=== PATIENT | male | born 1935 | race Caucasian/White ===

== ENCOUNTER 2017-11-18 01:11 | Inpatient (IN) | payer MEDICARE, BC ==
[~2017-11-18] VITALS: Ht 180.3 cm; Wt 90.6 kg
[~2017-11-18 01:11] MED LIST: CLOP75TA PO; LOSA50TA6 PO; METO-93 PO; NITR0.4T28 SL; PENI500T PO; SIMV20TA3 PO
[2017-11-18] MEDS ORDERED: LISI-167 PO (01:41)
[2017-11-18] MEDS ORDERED: ASPI-496 PO (01:41)
[2017-11-18] MEDS ORDERED: MORPHINE SULFATE 4 MG/ML, 1ML ONE (01:52)
[2017-11-18 01:57] LABS: BASOPHILS # (AUTO) 0.01 x10^3/uL (0-0.1); BASOPHILS % (AUTO) 0 % (0-1); EOSINOPHILS # (AUTO) 0.07 x10^3/uL (0-0.4); EOSINOPHILS % (AUTO) 1 % (1-7); LYMPHOCYTES % (AUTO) 37 % (22-44); MD NO; MEAN CORPUSCULAR HEMOGLOBIN 33.8 pg (27.5-34.5); MEAN CORPUSCULAR HGB CONC 33.6 g/dL (33.2-36.2); MEAN CORPUSCULAR VOLUME 100.7 fL (81-97); MEAN PLATELET VOLUME 8.5 fL (7.4-10.4); MONOCYTES # (AUTO) 0.37 x10^3/uL (0.2-0.8); MONOCYTES % (AUTO) 3 % (2-9); NEUTROPHILS # (AUTO) 7.55 x10^3/uL (1.8-6.8); NEUTROPHILS % (AUTO) 59 % (42-75); PLATELET COUNT 194 x10^3/uL (130-400); RED BLOOD COUNT 4.22 x10^6/uL (4.38-5.82); RED CELL DISTRIBUTION WIDTH 13.1 % (9.4-14.8)
[2017-11-18] MEDS ORDERED: MORPHINE SULFATE 4 MG/ML, 1ML IVPush PRN (02:00)
[2017-11-18] MEDS ORDERED: SODIUM CHLORIDE FLUSH 10ML SYR IVF ONE (02:00)
[2017-11-18 02:10] LABS: ANION GAP 11 mmol/L (5-15); CALCIUM 9.1 mg/dL (8.5-10.1); CHLORIDE 107 mmol/L (98-107); CREATININE 1.01 mg/dL (0.7-1.3)
[2017-11-18 02:11] LABS: ALANINE AMINOTRANSFERASE 19 U/L (12-78); ALBUMIN 3.4 g/dL (3.4-5.0)
[2017-11-18 02:13] LABS: ALKALINE PHOSPHATASE 109 U/L (45-117); BILIRUBIN,TOTAL 0.4 mg/dL (0.2-1.0); TOTAL PROTEIN 7.4 g/dL (6.4-8.2)
[2017-11-18] MEDS ORDERED: KETOROLAC 30 MG/1 ML ONE (03:24)
[2017-11-18] MEDS ORDERED: KETOROLAC 30 MG/1 ML IVPush ONE (03:30)
[2017-11-18] MEDS ORDERED: SODIUM CHLORIDE 0.9% 1,000ML IVBOLUS ONE (03:30)
[2017-11-18 03:49] LABS: MICROSCOPIC INDICATED
[2017-11-18 04:03] LABS: CULTURE INDICATED? NO
[2017-11-18 05:51] VITALS: BP 149/72
[2017-11-18] MEDS ORDERED: hydrALAzine 20 MG/ML, 1ML IVPush PRN (06:30)
[2017-11-18] MEDS ORDERED: morphine SULFATE 10 MG/ML, 1ML IVPush PRN (06:30)
[2017-11-18] MEDS ORDERED: BISACODYL 10 MG SUPP PR PRN (06:30)
[2017-11-18] MEDS ORDERED: POLYETHYLENE GLYCOL 17 GM PACKET PO PRN (06:30)
[2017-11-18] MEDS ORDERED: NITROGLYCERIN 0.4 MG BOTTLE (25 TABS) SL PRN (06:30)
[2017-11-18 06:58] LABS: FREE T4 (FREE THYROXINE) 1.14 ng/dL (0.76-1.46); THYROID STIMULATING HORMONE 3.46 mIU/L (0.358-3.740)
[2017-11-18 08:02] VITALS: BP 137/72
[2017-11-18] MEDS ORDERED: CLOPIDOGREL 75 MG TABLET PO SCH (09:00)
[2017-11-18] MEDS: SENNA/DOCUSATE TABLET PO SCH (09:00)
[2017-11-18] MEDS: METOPROLOL SUCCINATE 50 MG TAB.ER.24H PO SCH (09:11)
[2017-11-18] MEDS: LISINOPRIL 10 MG TABLET PO SCH (09:11)
[2017-11-18] MEDS: ASPIRIN 81 MG TABLET EC PO SCH (09:11)
[2017-11-18 10:12] LABS: CLOSTRIDIUM DIFFICILE ANTIGEN NEGATIVE; CLOSTRIDIUM DIFFICILE TOXIN NEGATIVE (Negative)
[2017-11-18] MEDS: SODIUM CHLORIDE 0.9% 1,000 ML IV SCH ×2 (10:18→18:52)
[2017-11-18 14:38] VITALS: BP 137/79
[2017-11-18] MEDS: OXYcodone IR 5MG TABLET PO PRN (14:57)
[2017-11-18 19:21] VITALS: BP 138/67
[2017-11-18] MEDS: SIMVASTATIN 20 MG TABLET PO SCH (21:24)
[2017-11-19 03:06] VITALS: BP 119/69
[2017-11-19 04:52] LABS: MEAN CORPUSCULAR HEMOGLOBIN 34.8 pg (27.5-34.5); MEAN CORPUSCULAR HGB CONC 34.2 g/dL (33.2-36.2); MEAN CORPUSCULAR VOLUME 101.6 fL (81-97); MEAN PLATELET VOLUME 8.6 fL (7.4-10.4); PLATELET COUNT 156 x10^3/uL (130-400); RED CELL DISTRIBUTION WIDTH 13.3 % (9.4-14.8)
[2017-11-19 04:56] LABS: ALBUMIN 2.7 g/dL (3.4-5.0); ANION GAP 8 mmol/L (5-15); CALCIUM 7.6 mg/dL (8.5-10.1); CHLORIDE 111 mmol/L (98-107)
[2017-11-19 05:00] LABS: ALANINE AMINOTRANSFERASE 15 U/L (12-78); ALKALINE PHOSPHATASE 86 U/L (45-117); BILIRUBIN,TOTAL 0.7 mg/dL (0.2-1.0); CHOL/HDL RATIO 3.6; CHOLESTEROL, TOTAL 98 mg/dL (140-239); CREATININE 0.92 mg/dL (0.7-1.3); HDL CHOL % 28 % (26-37); HDL CHOLESTEROL (DIRECT) 27 mg/dL (40-60); LDL CHOLESTEROL,CALCULATED 39 mg/dL (54-169); LDL/HDL RATIO 1.4 (0.5-3.0); TOTAL PROTEIN 5.8 g/dL (6.4-8.2); TRIGLYCERIDES 158 mg/dL (50-200); VLDL CHOLESTEROL 32 mg/dL (0-25)
[2017-11-19 05:15] LABS: BASOPHILS # (AUTO) 0.04 x10^3/uL (0-0.1); BASOPHILS % (AUTO) 0 % (0-1); EOSINOPHILS # (AUTO) 0.31 x10^3/uL (0-0.4); EOSINOPHILS % (AUTO) 3 % (1-7); LYMPHOCYTES # (AUTO) 5.69 x10^3/uL (1-3.4); LYMPHOCYTES % (AUTO) 50 % (22-44); MD SCAN; MONOCYTES % (AUTO) 8 % (2-9); NEUTROPHILS # (AUTO) 4.43 x10^3/uL (1.8-6.8); NEUTROPHILS % (AUTO) 39 % (42-75)
[2017-11-19 07:59] VITALS: BP 130/71
[2017-11-19] MEDS: ASPIRIN 81 MG TABLET EC PO SCH (08:19)
[2017-11-19] MEDS: METOPROLOL SUCCINATE 50 MG TAB.ER.24H PO SCH (08:19)
[2017-11-19] MEDS: LISINOPRIL 10 MG TABLET PO SCH (08:19)
[2017-11-19] MEDS: SENNA/DOCUSATE TABLET PO SCH (08:20)
[2017-11-19] MEDS: OXYcodone IR 5MG TABLET PO PRN ×3 (10:42→20:40)
[2017-11-19 14:48] VITALS: BP 114/64
[2017-11-19 19:31] VITALS: BP 132/62
[2017-11-19] MEDS: SIMVASTATIN 20 MG TABLET PO SCH (19:50)
[2017-11-20 01:08] VITALS: BP 129/71
[2017-11-20] MEDS: OXYcodone IR 5MG TABLET PO PRN ×5 (01:52→16:16)
[2017-11-20 05:30] LABS: BASOPHILS # (AUTO) 0.02 x10^3/uL (0-0.1); BASOPHILS % (AUTO) 0 % (0-1); EOSINOPHILS # (AUTO) 0.32 x10^3/uL (0-0.4); EOSINOPHILS % (AUTO) 3 % (1-7); LYMPHOCYTES # (AUTO) 4.87 x10^3/uL (1-3.4); LYMPHOCYTES % (AUTO) 44 % (22-44); MD NO; MEAN CORPUSCULAR HEMOGLOBIN 33.4 pg (27.5-34.5); MEAN CORPUSCULAR HGB CONC 33.3 g/dL (33.2-36.2); MEAN CORPUSCULAR VOLUME 100.2 fL (81-97); MEAN PLATELET VOLUME 8.3 fL (7.4-10.4); MONOCYTES # (AUTO) 1.07 x10^3/uL (0.2-0.8); MONOCYTES % (AUTO) 10 % (2-9); NEUTROPHILS # (AUTO) 4.74 x10^3/uL (1.8-6.8); NEUTROPHILS % (AUTO) 43 % (42-75); PLATELET COUNT 155 x10^3/uL (130-400); RED BLOOD COUNT 3.66 x10^6/uL (4.38-5.82); RED CELL DISTRIBUTION WIDTH 13.1 % (9.4-14.8)
[2017-11-20 05:44] LABS: ANION GAP 6 mmol/L (5-15); CALCIUM 7.7 mg/dL (8.5-10.1); CHLORIDE 107 mmol/L (98-107)
[2017-11-20 05:45] LABS: CREATININE 0.81 mg/dL (0.7-1.3)
[2017-11-20 08:00] VITALS: BP 111/64
[2017-11-20] MEDS: ASPIRIN 81 MG TABLET EC PO SCH (08:01)
[2017-11-20] MEDS: METOPROLOL SUCCINATE 50 MG TAB.ER.24H PO SCH (08:01)
[2017-11-20] MEDS: LISINOPRIL 10 MG TABLET PO SCH (08:01)
[2017-11-20] MEDS: SENNA/DOCUSATE TABLET PO SCH (08:11)
[2017-11-20] MEDS ORDERED: MAGNESIUM SULFATE PMX 2GM/50ML 50 ML IV ONE (09:30)
[2017-11-20 12:44] VITALS: BP 118/65
[2017-11-20] MEDS ORDERED: MAGN64TA7 PO (13:41)
[2017-11-20] MEDS ORDERED: SENN1TAB7 PO (13:41)
[2017-11-20] MEDS ORDERED: OXYC5TAB3 PO (13:41)
[2017-11-20] MEDS ORDERED: MAGNESIUM CHLORIDE 64 MG TABLET.DR PO SCH (21:00)
== END 2017-11-20 16:30 | disposition home or self-care (01) | DRG 693 ==
LOC: ED 01:38 → 4NOR 04:16 → 3NW 16:36
PROVIDERS: ADMIT Internal Medicine; ATTEND Internal Medicine
DX: N13.2 Hydronephrosis with renal and ureteral calculous obstruction (principal); J96.01 Acute respiratory failure with hypoxia; C79.51 Secondary malignant neoplasm of bone; C61 Malignant neoplasm of prostate; E11.65 Type 2 diabetes mellitus with hyperglycemia; J44.9 Chronic obstructive pulmonary disease, unspecified; R31.29 Other microscopic hematuria; I10 Essential (primary) hypertension; E78.5 Hyperlipidemia, unspecified; N40.0 Benign prostatic hyperplasia without lower urinary tract symptoms; I25.10 Atherosclerotic heart disease of native coronary artery without angina pectoris; Z95.5 Presence of coronary angioplasty implant and graft; I25.2 Old myocardial infarction; Z86.73 Personal history of transient ischemic attack (TIA), and cerebral infarction without residual deficits; Z89.112 Acquired absence of left hand; Z79.82 Long term (current) use of aspirin; Z79.899 Other long term (current) drug therapy
CPT/HCPCS: 36415; 74176; 80048; 80053; 80061; 81001; 83036; 83735; 84439; 84443; 85025; 87324; 96361; 96374; 96375; J1885; J3475; J7030

== ENCOUNTER 2017-12-03 09:06 | Day surgery (SDC) | payer MEDICARE, BC ==
[~2017-12-03] VITALS: Ht 180.3 cm; Wt 83.4 kg
[~2017-12-03 09:06] MED LIST changes: +ASPI-496 PO; +LISI-167 PO; +MAGN64TA7 PO; +OXYC5TAB3 PO; +SENN1TAB7 PO
[2017-12-03 10:17] VITALS: BP 151/79
[2017-12-03] MEDS ORDERED: SODIUM CHLORIDE 0.9% 1,000 ML IV SCH (10:19)
[2017-12-03] MEDS ORDERED: ALBU8.5H8 INH (10:28)
[2017-12-03] MEDS ORDERED: OXYC5CAP2 PO (10:28)
[2017-12-03] MEDS ORDERED: LISI-167 PO (10:28)
[2017-12-03] MEDS ORDERED: METO50TA82 PO (10:28)
[2017-12-03] MEDS ORDERED: MIDAZOLAM 1 MG/ML, 5ML ONE (11:04)
[2017-12-03] MEDS ORDERED: FENTANYL PF 100 MCG/2ML ONE (11:04)
[2017-12-03] MEDS ORDERED: NALOXONE 1 MG/ML, 2ML ONE (11:05)
[2017-12-03] MEDS ORDERED: FLUMAZENIL 0.1 MG/1 ML, 5ML ONE (11:05)
== END 2017-12-03 13:10 | disposition home or self-care (01) ==
LOC: OUT 09:06
PROVIDERS: ATTEND Urology
DX: C61 Malignant neoplasm of prostate (principal); C79.51 Secondary malignant neoplasm of bone; Z79.82 Long term (current) use of aspirin; J44.9 Chronic obstructive pulmonary disease, unspecified; E11.9 Type 2 diabetes mellitus without complications; Z86.73 Personal history of transient ischemic attack (TIA), and cerebral infarction without residual deficits; Z98.890 Other specified postprocedural states; Z95.1 Presence of aortocoronary bypass graft
CPT/HCPCS: 20220; 77012; 88307; 88311; 99156; 99157; J2250; J3010; J7030; 88341; 88342; G0461; J2310

== ENCOUNTER → 2018-04-07 | Outpatient (CLI) | payer MEDICARE, BC ==
[~2018-04-07] MED LIST changes: +ALBU8.5H8 INH; -LOSA50TA6 PO; +LOSA50TA7 PO; +METO50TA82 PO; +OXYC5CAP2 PO; -SENN1TAB7 PO; +SENN1TAB8 PO
== END | disposition home or self-care (01) ==
LOC: CVU 09:48
PROVIDERS: ATTEND Internal Medicine Cardiovascular Disease
DX: I65.23 Occlusion and stenosis of bilateral carotid arteries (principal); I63.9 Cerebral infarction, unspecified; I25.10 Atherosclerotic heart disease of native coronary artery without angina pectoris; I10 Essential (primary) hypertension; E11.9 Type 2 diabetes mellitus without complications; E78.5 Hyperlipidemia, unspecified; Z86.73 Personal history of transient ischemic attack (TIA), and cerebral infarction without residual deficits
CPT/HCPCS: 93880

== ENCOUNTER → 2018-05-20 | Outpatient (CLI) | payer MEDICARE, BC | END | disposition home or self-care (01) | LOC: WOUND 12:44 | PROVIDERS: ATTEND Internal Medicine | DX: L03.317 Cellulitis of buttock (principal); E11.9 Type 2 diabetes mellitus without complications; I10 Essential (primary) hypertension; E78.5 Hyperlipidemia, unspecified; J44.9 Chronic obstructive pulmonary disease, unspecified; I25.2 Old myocardial infarction; I25.10 Atherosclerotic heart disease of native coronary artery without angina pectoris; Z85.46 Personal history of malignant neoplasm of prostate; Z86.73 Personal history of transient ischemic attack (TIA), and cerebral infarction without residual deficits | CPT/HCPCS: 97597; G0463 ==

== ENCOUNTER → 2018-05-27 | Outpatient (CLI) | payer MEDICARE, BC | END | disposition home or self-care (01) | LOC: WOUND 13:10 | PROVIDERS: ATTEND Internal Medicine | DX: L03.317 Cellulitis of buttock (principal); E11.9 Type 2 diabetes mellitus without complications; I10 Essential (primary) hypertension; J44.9 Chronic obstructive pulmonary disease, unspecified; E78.5 Hyperlipidemia, unspecified; I25.2 Old myocardial infarction; I25.10 Atherosclerotic heart disease of native coronary artery without angina pectoris; Z85.46 Personal history of malignant neoplasm of prostate; Z86.73 Personal history of transient ischemic attack (TIA), and cerebral infarction without residual deficits | CPT/HCPCS: G0463 ==

== ENCOUNTER → 2018-11-23 | Outpatient (CLI) | payer MEDICARE, BC ==
[~2018-11-23] MED LIST changes: +LOSA50TA14 PO; -LOSA50TA7 PO; +SENN-177 PO; -SENN1TAB8 PO
== END | disposition home or self-care (01) ==
LOC: CVU 10:01
PROVIDERS: ATTEND Internal Medicine Cardiovascular Disease
DX: I08.8 Other rheumatic multiple valve diseases (principal); I25.10 Atherosclerotic heart disease of native coronary artery without angina pectoris; R06.02 Shortness of breath
CPT/HCPCS: 93306

== ENCOUNTER 2018-12-03 09:21 | Inpatient (IN) | payer MEDICARE, BC ==
[~2018-12-03] VITALS: Ht 177.8 cm; Wt 83.1 kg
[2018-12-03] MEDS ORDERED: SODIUM CHLORIDE FLUSH 10ML SYR IVF ONE (09:30)
--- NOTE | 2018-12-03 09:47 | NUR ---
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 SKIN WARM, PINK, DRY, NAD NOTED. LAB AT BEDSIDE. CARDIAC/SP02 MONITOR ON PATIENT. CALL LIGHT WITHIN REACH. SPOUSE AT BEDSIDE.
[2018-12-03] MEDS ORDERED: LEUP3.75 INJ (09:56)
[2018-12-03] MEDS ORDERED: DENO120V INJ (09:58)
[2018-12-03] MEDS ORDERED: ABIR250T PO (09:59)
[2018-12-03] MEDS ORDERED: METF500T17 PO (10:01)
--- NOTE | 2018-12-03 10:04 | NUR ---
LABS/BLOOD CULTURES DRAWN X 2 DRAWN, PATIENT DENIES CP, AWAITING CT AT THIS TIME. NAD NOTED.
[2018-12-03 10:21] LABS: ALBUMIN 3.6 g/dL (3.4-5.0); ANION GAP 12 mmol/L (5-15); CALCIUM 9.4 mg/dL (8.5-10.1); CHLORIDE 105 mmol/L (98-107); CREATININE 0.73 mg/dL (0.7-1.3); MEAN CORPUSCULAR HEMOGLOBIN 36.5 pg (27.5-34.5); MEAN CORPUSCULAR HGB CONC 33.6 g/dL (33.2-36.2); MEAN CORPUSCULAR VOLUME 108.4 fL (81-97); MEAN PLATELET VOLUME 8.4 fL (7.4-10.4); PLATELET COUNT 225 x10^3/uL (130-400); RED BLOOD COUNT 3.89 x10^6/uL (4.38-5.82); RED CELL DISTRIBUTION WIDTH 13.3 % (9.4-14.8)
[2018-12-03 10:25] LABS: TROPONIN I < 0.015 ng/mL (0.000-0.045)
--- NOTE | 2018-12-03 10:33 | NUR ---
PATIENT TO CT VIA [id number].
[2018-12-03] MEDS ORDERED: OMNIPAQUE 350 MG/ML, 100ML BOTTLE ONE (10:48)
[2018-12-03 10:52] LABS: MD YES
--- NOTE | 2018-12-03 11:00 | NUR ---
PATIENT SPEAKING TO MD AT BESIDE. PATIENT TO BE ADMIT. NAD NOTED, AWAITING ADMIT ORDER.
[2018-12-03 11:09] LABS: EOS#(MANUAL) 0.38 x10^3/uL (0.0-0.4); EOS% (MANUAL) 2 % (1-7); LYMPH#(MANUAL) 15.31 x10^3/uL (1-3.4); LYMPHS% (MANUAL) 81 % (22-44); MONOS#(MANUAL) 0.76 x10^3/uL (0.3-2.7); MONOS% (MANUAL) 4 % (2-9); SEG#(MANUAL) 2.46 x10^3/uL (1.8-6.8); SEGS% (MANUAL) 13 % (42-75)
[2018-12-03 11:16] LABS: SMUDGE CELLS 1+
[2018-12-03 11:20] LABS: <PLATELET ESTIMATE> ADEQUATE; LARGE PLATELETS 1+
[2018-12-03 11:26] LABS: HEMOGRAM NOTE RECHECKED
--- NOTE | 2018-12-03 11:46 | NUR ---
REPORT TO ANGELA ELI.
[2018-12-03 12:31] VITALS: BP 155/76
[2018-12-03] MEDS ORDERED: morphine SULFATE 10 MG/ML, 1ML IVPush PRN (15:30)
[2018-12-03] MEDS ORDERED: ONDANSETRON ODT 4 MG PO PRN (15:30)
[2018-12-03] MEDS ORDERED: BISACODYL 10 MG SUPP PR PRN (15:30)
[2018-12-03] MEDS ORDERED: PROMETHAZINE 25 MG/ML, 1ML IM PRN (15:30)
[2018-12-03] MEDS ORDERED: ONDANSETRON 2MG/ML, 2ML IVPush PRN (15:30)
[2018-12-03] MEDS ORDERED: hydrALAzine 20 MG/ML, 1ML IVPush PRN (15:30)
[2018-12-03] MEDS ORDERED: ACETAMINOPHEN 325 MG TABLET PO PRN (15:30)
[2018-12-03] MEDS ORDERED: POLYETHYLENE GLYCOL 17 GM PACKET PO PRN (15:30)
[2018-12-03] MEDS ORDERED: OXYcodone IR 5MG TABLET PO PRN (15:30)
[2018-12-03] MEDS ORDERED: DOCUSATE 100 MG CAPSULE PO PRN (15:30)
[2018-12-03] MEDS: ENOXAPARIN 40 MG/0.4 ML SQ SCH (16:10)
[2018-12-03 16:15] LABS: HEMOGLOBIN A1C 6.6 % (4.2-6.3)
[2018-12-03 16:22] LABS: FREE T4 (FREE THYROXINE) 1.27 ng/dL (0.76-1.46); THYROID STIMULATING HORMONE 2.87 mIU/L (0.358-3.740)
[2018-12-03 18:33] LABS: MICROSCOPIC NOT IND
[2018-12-03 18:47] LABS: CULTURE INDICATED? NO
[2018-12-03 20:08] VITALS: BP 123/75
[2018-12-04 01:51] VITALS: BP 100/55
[2018-12-04 05:03] LABS: MEAN CORPUSCULAR HEMOGLOBIN 35.9 pg (27.5-34.5); MEAN CORPUSCULAR HGB CONC 32.7 g/dL (33.2-36.2); MEAN CORPUSCULAR VOLUME 109.6 fL (81-97); MEAN PLATELET VOLUME 8.4 fL (7.4-10.4); PLATELET COUNT 201 x10^3/uL (130-400); RED BLOOD COUNT 3.54 x10^6/uL (4.38-5.82)
[2018-12-04 05:26] LABS: CHLORIDE 104 mmol/L (98-107)
[2018-12-04 05:31] LABS: ALANINE AMINOTRANSFERASE 19 U/L (12-78); ALKALINE PHOSPHATASE 66 U/L (45-117); ANION GAP 6 mmol/L (5-15); BILIRUBIN,TOTAL 0.4 mg/dL (0.2-1.0); CALCIUM 8.3 mg/dL (8.5-10.1); CHOL/HDL RATIO 5.7; CHOLESTEROL, TOTAL 195 mg/dL (140-239); CREATININE 0.73 mg/dL (0.7-1.3); HDL CHOL % 17 % (26-37); HDL CHOLESTEROL (DIRECT) 34 mg/dL (40-60); LDL CHOLESTEROL,CALCULATED 92 mg/dL (54-169); LDL/HDL RATIO 2.7 (0.5-3.0); TRIGLYCERIDES 347 mg/dL (50-200); VLDL CHOLESTEROL 69 mg/dL (0-25)
[2018-12-04 05:58] LABS: MD YES
[2018-12-04 06:00] LABS: <PLATELET ESTIMATE> ADEQUATE; EOS#(MANUAL) 0.51 x10^3/uL (0.0-0.4); EOS% (MANUAL) 3 % (1-7); LYMPH#(MANUAL) 10.71 x10^3/uL (1-3.4); LYMPHS% (MANUAL) 63 % (22-44); MONOS#(MANUAL) 0.51 x10^3/uL (0.3-2.7); MONOS% (MANUAL) 3 % (2-9); REACTIVE LYMPHS # (MANUAL) 0.34 x10^3/uL (0-0); REACTIVE LYMPHS % (MANUAL) 2 % (0-0); SEG#(MANUAL) 4.93 x10^3/uL (1.8-6.8); SEGS% (MANUAL) 29 % (42-75); SMUDGE CELLS 1+
[2018-12-04 06:01] LABS: LARGE PLATELETS 1+
[2018-12-04] MEDS ORDERED: MAGNESIUM SULFATE PMX 4GM/100M 100 ML IV ONE (07:30)
[2018-12-04 07:50] VITALS: BP 131/70
[2018-12-04] MEDS ORDERED: ACETAMINOPHEN 325 MG TABLET PO PRN (08:00)
[2018-12-04] MEDS: SODIUM CHLORIDE 0.9% 1,000 ML IV SCH (08:48)
[2018-12-04] MEDS: INSULIN LISPRO 100 UNITS/ML, PEN SQ-INSULIN SCH ×3 (11:00→20:01)
[2018-12-04 13:15] VITALS: BP 99/62
[2018-12-04] MEDS ORDERED: SIMV20TA3 PO (14:27)
[2018-12-04] MEDS ORDERED: PRED5TAB PO (14:28)
[2018-12-04] MEDS ORDERED: OXYC-302 PO (14:29)
[2018-12-04] MEDS ORDERED: UMEC62.5 INH (14:41)
[2018-12-04] MEDS ORDERED: ESOM20CA57 PO (14:48)
[2018-12-04] MEDS: ENOXAPARIN 40 MG/0.4 ML SQ SCH (17:50)
[2018-12-04 19:04] VITALS: BP 127/66
[2018-12-04] MEDS ORDERED: METOPROLOL TARTRATE 50 MG TABLET PO SCH (21:00)
[2018-12-04] MEDS: metFORMIN XR 500 MG TAB.ER.24H PO SCH (21:08)
[2018-12-05 01:05] VITALS: BP 125/73
[2018-12-05] MEDS: SODIUM CHLORIDE 0.9% 1,000 ML IV SCH (03:04)
[2018-12-05] MEDS ORDERED: ASPIRIN 81 MG TABLET EC PO SCH (06:00)
[2018-12-05] MEDS: INSULIN LISPRO 100 UNITS/ML, PEN SQ-INSULIN SCH (07:00)
[2018-12-05 07:17] VITALS: BP 132/75
[2018-12-05 07:51] LABS: MEAN CORPUSCULAR HEMOGLOBIN 34.2 pg (27.5-34.5); MEAN CORPUSCULAR HGB CONC 31.1 g/dL (33.2-36.2); MEAN CORPUSCULAR VOLUME 109.7 fL (81-97); MEAN PLATELET VOLUME 8.5 fL (7.4-10.4); PLATELET COUNT 190 x10^3/uL (130-400); RED BLOOD COUNT 3.47 x10^6/uL (4.38-5.82); RED CELL DISTRIBUTION WIDTH 13.5 % (9.4-14.8)
[2018-12-05] MEDS: metFORMIN XR 500 MG TAB.ER.24H PO SCH (08:00)
[2018-12-05 08:59] LABS: MD YES
[2018-12-05 09:33] LABS: EOS#(MANUAL) 0.14 x10^3/uL (0.0-0.4); EOS% (MANUAL) 1 % (1-7); METAMYELOCYTES# (MANUAL) 0.14 x10^3/uL (0-0); METAMYELOCYTES% (MANUAL) 1 % (0-1)
[2018-12-05 09:36] LABS: <PLATELET ESTIMATE> ADEQUATE; ANISOCYTOSIS 1+; LYMPH#(MANUAL) 10.01 x10^3/uL (1-3.4); LYMPHS% (MANUAL) 71 % (22-44); MONOS#(MANUAL) 0.28 x10^3/uL (0.3-2.7); MONOS% (MANUAL) 2 % (2-9); SEG#(MANUAL) 3.53 x10^3/uL (1.8-6.8); SEGS% (MANUAL) 25 % (42-75); SMUDGE CELLS 1+
[2018-12-05 09:37] LABS: LARGE PLATELETS 1+
== END 2018-12-05 11:38 | disposition home or self-care (01) | DRG 189 ==
LOC: ED 11:14 → EDIP 11:25 → 3NW 12:14 → DCLOUNGE 12-05 11:27
PROVIDERS: ADMIT Internal Medicine; ATTEND Internal Medicine
DX: J96.21 Acute and chronic respiratory failure with hypoxia (principal); C91.10 Chronic lymphocytic leukemia of B-cell type not having achieved remission; C79.51 Secondary malignant neoplasm of bone; E87.2 Acidosis; J84.10 Pulmonary fibrosis, unspecified; E11.9 Type 2 diabetes mellitus without complications; E78.5 Hyperlipidemia, unspecified; E83.42 Hypomagnesemia; I10 Essential (primary) hypertension; I25.10 Atherosclerotic heart disease of native coronary artery without angina pectoris; J44.9 Chronic obstructive pulmonary disease, unspecified; M19.90 Unspecified osteoarthritis, unspecified site; I25.2 Old myocardial infarction; Z85.46 Personal history of malignant neoplasm of prostate; Z86.73 Personal history of transient ischemic attack (TIA), and cerebral infarction without residual deficits; Z87.442 Personal history of urinary calculi; Z92.21 Personal history of antineoplastic chemotherapy; Z95.5 Presence of coronary angioplasty implant and graft; Z99.81 Dependence on supplemental oxygen; Z79.82 Long term (current) use of aspirin; Z79.899 Other long term (current) drug therapy; L89.312 Pressure ulcer of right buttock, stage 2
CPT/HCPCS: 36415; 36600; 71275; 80048; 80053; 80061; 81003; 82040; 82803; 82962; 83036; 83605; 83735; 83880; 84100; 84439; 84443; 84484; 85025; 87040; 93005; 96374; 99285; G0378; J1650; Q9967; J1815; J3475; J7030; J7512

== ENCOUNTER 2019-05-03 12:43 | Inpatient (IN) | payer MEDICARE, BC ==
[~2019-05-03] VITALS: Ht 177.8 cm; Wt 83.7 kg
[~2019-05-03 12:43] MED LIST changes: +ABIR250T PO; +DENO120V INJ; +ESOM20CA57 PO; +LEUP3.75 INJ; +METF500T17 PO; +OXYC-302 PO; +PRED5TAB PO; +UMEC62.5 INH
[2019-05-03] MEDS ORDERED: NITR0.4T41 SL (13:00)
[2019-05-03] MEDS ORDERED: ABIR250T PO (13:02)
[2019-05-03] MEDS ORDERED: MULT-707 PO (13:02)
[2019-05-03] MEDS ORDERED: CALC200T3 PO (13:03)
--- NOTE | 2019-05-03 13:07 | NUR ---
PATIENT BIB [facility] FOR SOB AND CHEST PAIN FOR MONTHS, WORSENING PAIN IN LEFT ARM WHEN "OXYGEN LEVEL DROPS", 58% 5L O2 PER FAMILY, NOW 96% 4L OXYMASK, HR 110'S-140'S UPON ARRIVAL TO [facility]. HX PR WITH CARDIAC STENTS X 3. HX PROSTATE CA, CLL (DORMANT), CVA (2010), PULMONARY FIBROSIS, COPD. DENIES PAIN AT THIS TIME. 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
--- NOTE | 2019-05-03 13:09 | NUR ---
PATIENT 88%4L OXYMASK, NOW 92% 6L OXYMASK, NADN. DENIES CP AT THIS TIME.
--- NOTE | 2019-05-03 13:23 | NUR ---
PATIENT O2 TURNED DOWN TO 5L, NOW 93% 5L OXYMASK, LAB AT BEDSIDE,
[2019-05-03] MEDS ORDERED: SODIUM CHLORIDE 0.9% 1,000ML IVBOLUS ONE (13:30)
[2019-05-03] MEDS ORDERED: SODIUM CHLORIDE FLUSH 10ML SYR IVF ONE (13:30)
--- NOTE | 2019-05-03 13:43 | NUR ---
XRAY AT BEDSIDE.
[2019-05-03 13:46] LABS: MEAN CORPUSCULAR HGB CONC 32.8 g/dL (33.2-36.2); MEAN CORPUSCULAR VOLUME 106.9 fL (81-97); MEAN PLATELET VOLUME 8.4 fL (7.4-10.4); PLATELET COUNT 194 x10^3/uL (130-400); RED BLOOD COUNT 4.03 x10^6/uL (4.38-5.82)
[2019-05-03 13:55] LABS: INTERNATIONAL NORMALIZED RATIO 0.97 (0.93-1.1); PROTHROMBIN TIME 10.2 Seconds (9.6-11.5)
[2019-05-03 13:56] LABS: ALBUMIN 3.3 g/dL (3.4-5.0); ANION GAP 9 mmol/L (5-15); CALCIUM 8.2 mg/dL (8.5-10.1); CHLORIDE 108 mmol/L (98-107)
[2019-05-03 14:02] LABS: ALANINE AMINOTRANSFERASE 14 U/L (12-78); ALKALINE PHOSPHATASE 76 U/L (45-117); BILIRUBIN,TOTAL 0.8 mg/dL (0.2-1.0); CREATININE 0.76 mg/dL (0.7-1.3); TOTAL PROTEIN 6.8 g/dL (6.4-8.2); TROPONIN I 0.107 ng/mL (0.000-0.045)
--- NOTE | 2019-05-03 14:06 | NUR ---
SPOKE TO ERP, STOP IVF PER ORDER. IVF STOPPED AT THIS TIME. HR 90'S-140'S, ERP AWARE, CARDIZEM TO BE ORDERED. PATIENT 81% 5L OXYMASK, SUPPLEMENTAL O2 INCREASED, NOW 99% 6L OXYMASK, NADN. PATIENT TO BE ADMIT PER ERP.
[2019-05-03 14:21] LABS: MD YES
[2019-05-03 14:24] LABS: BAND#(MANUAL) 0.17 x10^3/uL; BANDS%(MANUAL) 1 % (0-7); LYMPH#(MANUAL) 9.97 x10^3/uL (1-3.4); LYMPHS% (MANUAL) 59 % (22-44); MONOS#(MANUAL) 1.18 x10^3/uL (0.3-2.7); MONOS% (MANUAL) 7 % (2-9); SEG#(MANUAL) 5.58 x10^3/uL (1.8-6.8); SEGS% (MANUAL) 33 % (42-75)
[2019-05-03 14:25] LABS: <PLATELET ESTIMATE> ADEQUATE; ANISOCYTOSIS 1+; SMUDGE CELLS 1+
[2019-05-03 14:26] LABS: <PLT MORPHOLOGY> NORMAL PLT MORPH
--- NOTE | 2019-05-03 14:30 | NUR ---
TO SEE PATIENT PRIOR TO ORDERING CARDIZEM.
[2019-05-03] MEDS ORDERED: UMEC62.5 INH (14:37)
[2019-05-03] MEDS ORDERED: ALBU0.63 NEB (14:37)
--- NOTE | 2019-05-03 15:00 | NUR ---
VS UPDATED IN CHART, AWAITING ADMIT ORDER. PATIENT SITTING IN GERRY GE.
--- NOTE | 2019-05-03 16:26 | NUR ---
REPORT TO ANGELA WHITE.
--- NOTE | 2019-05-03 16:26 | NUR ---
PATIENT IN RADIOLOGY.
[2019-05-03] MEDS ORDERED: DEXTROSE 50%, 50ML SYRINGE IVPush PRN (16:30)
[2019-05-03] MEDS ORDERED: ACETAMINOPHEN 325 MG TABLET PO PRN (16:30)
[2019-05-03] MEDS ORDERED: NITROGLYCERIN 0.4 MG BOTTLE (25 TABS) SL PRN (16:30)
[2019-05-03] MEDS ORDERED: ONDANSETRON ODT 4 MG PO PRN (16:30)
[2019-05-03] MEDS ORDERED: NITROGLYCERIN 0.4 MG/SPRAY SL PRN (16:30)
[2019-05-03] MEDS ORDERED: DEXTROSE 4 GM TAB.CHEW PO PRN (16:30)
[2019-05-03] MEDS ORDERED: hydrALAzine 20 MG/ML, 1ML IVPush PRN (16:30)
[2019-05-03] MEDS ORDERED: ONDANSETRON 2MG/ML, 2ML IVPush PRN (16:30)
[2019-05-03] MEDS ORDERED: GLUCAGON 1 MG IM PRN (16:30)
[2019-05-03] MEDS ORDERED: OXYcodone IR 5MG TABLET PO PRN (16:30)
[2019-05-03] MEDS ORDERED: morphine SULFATE 10 MG/ML, 1ML IVPush PRN (16:30)
[2019-05-03] MEDS ORDERED: PROMETHAZINE 25 MG/ML, 1ML IM PRN (16:30)
[2019-05-03] MEDS ORDERED: OMNIPAQUE 350 MG/ML, 100ML BOTTLE ONE (16:38)
--- NOTE | 2019-05-03 16:50 | NUR ---
PATIENT TRANSFERRED/ADMITTED TO HOSPITAL BED UPSTAIRS.
[2019-05-03 16:59] VITALS: BP 135/85
[2019-05-03] MEDS: FUROSEMIDE 40 MG/4 ML IV SCH (17:06)
[2019-05-03] MEDS: methylPREDNISolone SOD SUCC 40 MG/ML IV SCH (17:11)
[2019-05-03] MEDS: ENOXAPARIN 40 MG/0.4 ML SQ SCH (17:16)
[2019-05-03] MEDS ORDERED: METOPROLOL TARTRATE 50 MG TABLET ONE (17:30)
[2019-05-03] MEDS ORDERED: FENO130C6 PO (17:46)
[2019-05-03] MEDS ORDERED: ALBUTEROL SULFATE 2.5 MG/3 ML NPPB PRN (20:00)
[2019-05-03 20:04] VITALS: BP 118/84
[2019-05-03] MEDS: ALBUTEROL/IPRATROPIUM 2.5MG/0.5MG, 3 ML NPPB SCH (20:17)
[2019-05-03] MEDS ORDERED: METOPROLOL TARTRATE 50 MG TABLET PO SCH (21:00)
[2019-05-03] MEDS: SODIUM CHLORIDE FLUSH 10ML SYR IVF SCH (21:23)
[2019-05-03] MEDS: SIMVASTATIN 20 MG TABLET PO SCH (21:25)
[2019-05-03] MEDS: LOSARTAN 50MG TABLET PO SCH (21:25)
[2019-05-03] MEDS: INSULIN LISPRO 100 UNITS/ML, PEN SQ-INSULIN SCH (22:36)
[2019-05-04] MEDS: methylPREDNISolone SOD SUCC 40 MG/ML IV SCH ×3 (01:25→17:27)
[2019-05-04] MEDS: FUROSEMIDE 40 MG/4 ML IV SCH ×3 (01:25→17:30)
[2019-05-04 03:13] VITALS: BP 110/75
[2019-05-04 03:25] LABS: MEAN CORPUSCULAR HEMOGLOBIN 34.4 pg (27.5-34.5); MEAN CORPUSCULAR VOLUME 107.4 fL (81-97); MEAN PLATELET VOLUME 8.6 fL (7.4-10.4); PLATELET COUNT 206 x10^3/uL (130-400); RED BLOOD COUNT 3.88 x10^6/uL (4.38-5.82); RED CELL DISTRIBUTION WIDTH 14.1 % (9.4-14.8)
[2019-05-04 03:33] LABS: ANION GAP 7 mmol/L (5-15); CALCIUM 7.9 mg/dL (8.5-10.1); CHLORIDE 109 mmol/L (98-107); CREATININE 0.82 mg/dL (0.7-1.3)
[2019-05-04 03:40] LABS: TROPONIN I 0.207 ng/mL (0.000-0.045)
[2019-05-04 04:15] LABS: MD YES
[2019-05-04 04:18] LABS: LYMPH#(MANUAL) 10.37 x10^3/uL (1-3.4); LYMPHS% (MANUAL) 73 % (22-44); MONOS#(MANUAL) 0.14 x10^3/uL (0.3-2.7); MONOS% (MANUAL) 1 % (2-9); MYELOCYTES# (MANUAL) 0.14 x10^3/uL (0-0); MYELOCYTES% (MANUAL) 1 % (0-0); SEG#(MANUAL) 3.55 x10^3/uL (1.8-6.8); SEGS% (MANUAL) 25 % (42-75)
[2019-05-04 04:20] LABS: <PLATELET ESTIMATE> ADEQUATE; SMUDGE CELLS 1+
[2019-05-04 04:21] LABS: <PLT MORPHOLOGY> NORMAL PLT MORPH; <RBC MORPHOLOGY> NORMAL
[2019-05-04 06:33] VITALS: BP 121/85
[2019-05-04] MEDS: ALBUTEROL/IPRATROPIUM 2.5MG/0.5MG, 3 ML NPPB SCH ×4 (06:51→20:10)
[2019-05-04] MEDS: SODIUM CHLORIDE FLUSH 10ML SYR IVF SCH ×2 (09:20→21:00)
[2019-05-04] MEDS: CLOPIDOGREL 75 MG TABLET PO SCH (09:20)
[2019-05-04] MEDS: ASPIRIN 81 MG TABLET EC PO SCH (09:20)
[2019-05-04] MEDS: INSULIN LISPRO 100 UNITS/ML, PEN SQ-INSULIN SCH ×3 (09:31→20:40)
[2019-05-04 12:08] VITALS: BP 106/68
[2019-05-04] MEDS ORDERED: METOPROLOL TARTRATE 25 MG TABLET PO ONE (14:00)
[2019-05-04] MEDS ORDERED: METO-264 PO (14:33)
[2019-05-04] MEDS ORDERED: EZET10TA48 PO (14:37)
[2019-05-04] MEDS ORDERED: INSULIN LISPRO 100 UNITS/ML, PEN SQ-INSULIN SCH (16:00)
[2019-05-04] MEDS: ENOXAPARIN 40 MG/0.4 ML SQ SCH (17:27)
[2019-05-04 18:45] VITALS: BP 103/72
[2019-05-04] MEDS: SIMVASTATIN 20 MG TABLET PO SCH (20:40)
[2019-05-04] MEDS: LOSARTAN 50MG TABLET PO SCH (21:00)
[2019-05-04] MEDS ORDERED: METOPROLOL SUCCINATE 50 MG TAB.ER.24H PO SCH (21:00)
[2019-05-05 01:10] VITALS: BP 107/70
[2019-05-05] MEDS: methylPREDNISolone SOD SUCC 40 MG/ML IV SCH ×3 (01:10→17:21)
[2019-05-05] MEDS: FUROSEMIDE 40 MG/4 ML IV SCH ×3 (01:10→17:21)
[2019-05-05 02:08] LABS: MEAN CORPUSCULAR HEMOGLOBIN 34.9 pg (27.5-34.5); MEAN CORPUSCULAR HGB CONC 32.8 g/dL (33.2-36.2); MEAN CORPUSCULAR VOLUME 106.3 fL (81-97); MEAN PLATELET VOLUME 8.3 fL (7.4-10.4); PLATELET COUNT 212 x10^3/uL (130-400); RED BLOOD COUNT 3.54 x10^6/uL (4.38-5.82); RED CELL DISTRIBUTION WIDTH 14.1 % (9.4-14.8)
[2019-05-05 02:21] LABS: ANION GAP 10 mmol/L (5-15); CALCIUM 7.5 mg/dL (8.5-10.1); CHLORIDE 106 mmol/L (98-107)
[2019-05-05 02:40] LABS: BASOPHILS # (AUTO) 0.06 x10^3/uL (0-0.1); BASOPHILS % (AUTO) 0 % (0-1); EOSINOPHILS # (AUTO) 0.15 x10^3/uL (0-0.4); EOSINOPHILS % (AUTO) 1 % (1-7); LYMPHOCYTES # (AUTO) 11.18 x10^3/uL (1-3.4); LYMPHOCYTES % (AUTO) 47 % (22-44); MD SCAN; MONOCYTES # (AUTO) 0.83 x10^3/uL (0.2-0.8); MONOCYTES % (AUTO) 4 % (2-9); NEUTROPHILS # (AUTO) 11.81 x10^3/uL (1.8-6.8); NEUTROPHILS % (AUTO) 49 % (42-75)
[2019-05-05 02:43] LABS: TROPONIN I 0.225 ng/mL (0.000-0.045)
[2019-05-05 03:33] VITALS: BP 136/82
[2019-05-05] MEDS: ALBUTEROL/IPRATROPIUM 2.5MG/0.5MG, 3 ML NPPB SCH ×4 (07:00→18:58)
[2019-05-05] MEDS: INSULIN LISPRO 100 UNITS/ML, PEN SQ-INSULIN SCH ×4 (08:33→19:52)
[2019-05-05] MEDS: CLOPIDOGREL 75 MG TABLET PO SCH (08:34)
[2019-05-05] MEDS: ASPIRIN 81 MG TABLET EC PO SCH (08:34)
[2019-05-05] MEDS: SODIUM CHLORIDE FLUSH 10ML SYR IVF SCH ×2 (08:34→21:00)
[2019-05-05 10:12] VITALS: BP 90/57
[2019-05-05 12:25] VITALS: BP 133/79
[2019-05-05 12:28] VITALS: BP_SYST 133; BP_SYST 90; BP_DIAS 64; BP_DIAS 79
[2019-05-05 15:55] LABS: HEMOGLOBIN A1C 6.6 % (4.2-6.3)
[2019-05-05] MEDS: ENOXAPARIN 40 MG/0.4 ML SQ SCH (17:22)
[2019-05-05 19:20] VITALS: BP 120/70
[2019-05-05] MEDS: SIMVASTATIN 20 MG TABLET PO SCH (19:52)
[2019-05-06] MEDS: FUROSEMIDE 40 MG/4 ML IV SCH ×3 (00:31→17:21)
[2019-05-06] MEDS: methylPREDNISolone SOD SUCC 40 MG/ML IV SCH ×3 (00:32→17:14)
[2019-05-06] MEDS: DILTIAZEM 5 MG/ML, 5ML IVPush PRN ×3 (00:32→10:56)
[2019-05-06 00:57] VITALS: BP 105/62
[2019-05-06 05:03] LABS: ANION GAP 9 mmol/L (5-15); CALCIUM 7.2 mg/dL (8.5-10.1); CHLORIDE 103 mmol/L (98-107); CREATININE 1.03 mg/dL (0.7-1.3)
[2019-05-06] MEDS: ALBUTEROL/IPRATROPIUM 2.5MG/0.5MG, 3 ML NPPB SCH ×4 (06:35→19:40)
[2019-05-06 07:32] VITALS: BP 115/78
[2019-05-06] MEDS: CLOPIDOGREL 75 MG TABLET PO SCH (08:32)
[2019-05-06] MEDS: SODIUM CHLORIDE FLUSH 10ML SYR IVF SCH ×2 (08:33→21:00)
[2019-05-06] MEDS: ASPIRIN 81 MG TABLET EC PO SCH (08:35)
[2019-05-06] MEDS: INSULIN LISPRO 100 UNITS/ML, PEN SQ-INSULIN SCH ×4 (08:36→21:20)
[2019-05-06] MEDS ORDERED: DILTIAZEM 30 MG TABLET PO SCH (09:00)
[2019-05-06] MEDS ORDERED: DOCUSATE 100 MG CAPSULE PO PRN (09:30)
[2019-05-06 14:00] VITALS: BP 136/75
[2019-05-06] MEDS: DILTIAZEM 30 MG TABLET PO SCH ×2 (15:08→21:19)
[2019-05-06] MEDS: INSULIN GLARGINE 100 UNITS/ML, PEN SQ-INSULIN SCH (17:13)
[2019-05-06] MEDS: ENOXAPARIN 40 MG/0.4 ML SQ SCH (17:21)
[2019-05-06 20:02] VITALS: BP 112/74
[2019-05-06] MEDS: SIMVASTATIN 20 MG TABLET PO SCH (21:19)
[2019-05-07] MEDS: methylPREDNISolone SOD SUCC 40 MG/ML IV SCH ×3 (00:30→17:17)
[2019-05-07] MEDS: CALCIUM CARBONATE 500 MG TAB.CHEW PO SCH ×2 (00:50→08:16)
[2019-05-07 00:51] VITALS: BP 115/80
[2019-05-07] MEDS: FUROSEMIDE 40 MG/4 ML IV SCH ×3 (01:41→17:17)
[2019-05-07 03:15] VITALS: BP 117/78
[2019-05-07] MEDS: DILTIAZEM 30 MG TABLET PO SCH ×4 (03:17→21:04)
[2019-05-07] MEDS: INSULIN GLARGINE 100 UNITS/ML, PEN SQ-INSULIN SCH (06:00)
[2019-05-07] MEDS: ALBUTEROL/IPRATROPIUM 2.5MG/0.5MG, 3 ML NPPB SCH ×4 (07:40→19:11)
[2019-05-07] MEDS ORDERED: MAGNESIUM SULFATE PMX 2GM/50ML 50 ML IV ONE (08:00)
[2019-05-07] MEDS ORDERED: POTASSIUM CHLORIDE 20 MEQ TAB.ER.PRT PO ONE (08:00)
[2019-05-07] MEDS: INSULIN LISPRO 100 UNITS/ML, PEN SQ-INSULIN SCH ×4 (08:15→21:05)
[2019-05-07] MEDS: SPIRONOLACTONE 25 MG TABLET PO SCH (08:16)
[2019-05-07] MEDS: CLOPIDOGREL 75 MG TABLET PO SCH (08:16)
[2019-05-07] MEDS: ASPIRIN 81 MG TABLET EC PO SCH (08:16)
[2019-05-07] MEDS: SODIUM CHLORIDE FLUSH 10ML SYR IVF SCH ×2 (08:22→21:05)
[2019-05-07 08:25] VITALS: BP 134/72
[2019-05-07] MEDS: FAMOTIDINE 20 MG TABLET PO SCH ×2 (10:05→21:04)
[2019-05-07 10:21] LABS: MEAN CORPUSCULAR HEMOGLOBIN 35.1 pg (27.5-34.5); MEAN CORPUSCULAR HGB CONC 32.5 g/dL (33.2-36.2); MEAN CORPUSCULAR VOLUME 107.9 fL (81-97); MEAN PLATELET VOLUME 9.2 fL (7.4-10.4); PLATELET COUNT 233 x10^3/uL (130-400); RED BLOOD COUNT 4.25 x10^6/uL (4.38-5.82); RED CELL DISTRIBUTION WIDTH 14.2 % (9.4-14.8)
[2019-05-07 10:34] LABS: ALBUMIN 3.2 g/dL (3.4-5.0); ANION GAP 9 mmol/L (5-15); CALCIUM 7.8 mg/dL (8.5-10.1); CHLORIDE 100 mmol/L (98-107)
[2019-05-07 10:38] LABS: ALANINE AMINOTRANSFERASE 18 U/L (12-78); ALKALINE PHOSPHATASE 78 U/L (45-117); BILIRUBIN,TOTAL 0.7 mg/dL (0.2-1.0); MD YES; TOTAL PROTEIN 6.5 g/dL (6.4-8.2)
[2019-05-07] MEDS ORDERED: MAALOX/HYOSCYAMINE/LIDOCAINE 45 ML BTL PO ONE (11:00)
[2019-05-07 11:12] LABS: MONOS#(MANUAL) 0.98 x10^3/uL (0.3-2.7); MONOS% (MANUAL) 3 % (2-9)
[2019-05-07 11:14] LABS: LYMPHS% (MANUAL) 57 % (22-44); SEG#(MANUAL) 13.12 x10^3/uL (1.8-6.8); SEGS% (MANUAL) 40 % (42-75); SMUDGE CELLS 1+
[2019-05-07 11:15] LABS: <PLATELET ESTIMATE> ADEQUATE; <PLT MORPHOLOGY> NORMAL PLT MORPH
[2019-05-07 14:21] VITALS: BP 111/70
[2019-05-07] MEDS: ENOXAPARIN 40 MG/0.4 ML SQ SCH (17:17)
[2019-05-07] MEDS ORDERED: INSULIN GLARGINE 100 UNITS/ML, PEN SQ-INSULIN SCH ×2 (18:00)
[2019-05-07 19:58] VITALS: BP 113/70
[2019-05-07] MEDS: SIMVASTATIN 20 MG TABLET PO SCH (21:04)
[2019-05-08] MEDS: methylPREDNISolone SOD SUCC 40 MG/ML IV SCH ×4 (00:35→14:00)
[2019-05-08] MEDS: FUROSEMIDE 40 MG/4 ML IV SCH ×4 (00:35→21:52)
[2019-05-08 01:30] VITALS: BP 120/76
[2019-05-08] MEDS: DILTIAZEM 30 MG TABLET PO SCH ×4 (03:42→17:15)
[2019-05-08 05:09] LABS: MEAN CORPUSCULAR HEMOGLOBIN 34.6 pg (27.5-34.5); MEAN CORPUSCULAR VOLUME 108.1 fL (81-97); MEAN PLATELET VOLUME 8.9 fL (7.4-10.4); PLATELET COUNT 211 x10^3/uL (130-400); RED BLOOD COUNT 3.96 x10^6/uL (4.38-5.82); RED CELL DISTRIBUTION WIDTH 14.4 % (9.4-14.8)
[2019-05-08 05:17] LABS: CHLORIDE 100 mmol/L (98-107)
[2019-05-08 05:26] LABS: ALANINE AMINOTRANSFERASE 20 U/L (12-78); ALBUMIN 2.8 g/dL (3.4-5.0); ALKALINE PHOSPHATASE 70 U/L (45-117); ANION GAP 5 mmol/L (5-15); BILIRUBIN,TOTAL 0.7 mg/dL (0.2-1.0); CALCIUM 7.4 mg/dL (8.5-10.1); CREATININE 0.94 mg/dL (0.7-1.3)
[2019-05-08] MEDS ORDERED: INSULIN GLARGINE 100 UNITS/ML, PEN SQ-INSULIN SCH (06:00)
[2019-05-08 06:04] LABS: BASOPHILS # (AUTO) 0.03 x10^3/uL (0-0.1); BASOPHILS % (AUTO) 0 % (0-1); EOSINOPHILS % (AUTO) 0 % (1-7); LYMPHOCYTES # (AUTO) 19.35 x10^3/uL (1-3.4); LYMPHOCYTES % (AUTO) 59 % (22-44); MD SCAN; MONOCYTES % (AUTO) 1 % (2-9); NEUTROPHILS # (AUTO) 13.32 x10^3/uL (1.8-6.8); NEUTROPHILS % (AUTO) 41 % (42-75)
[2019-05-08 06:37] VITALS: BP 119/81
[2019-05-08] MEDS: ALBUTEROL/IPRATROPIUM 2.5MG/0.5MG, 3 ML NPPB SCH ×4 (07:00→19:00)
[2019-05-08] MEDS: INSULIN LISPRO 100 UNITS/ML, PEN SQ-INSULIN SCH ×4 (07:08→22:15)
[2019-05-08] MEDS: CALCIUM CARBONATE 500 MG TAB.CHEW PO SCH (08:13)
[2019-05-08] MEDS: CLOPIDOGREL 75 MG TABLET PO SCH (08:14)
[2019-05-08] MEDS: SPIRONOLACTONE 25 MG TABLET PO SCH (08:14)
[2019-05-08] MEDS: FAMOTIDINE 20 MG TABLET PO SCH ×2 (08:14→21:52)
[2019-05-08] MEDS: ASPIRIN 81 MG TABLET EC PO SCH (08:14)
[2019-05-08] MEDS: SODIUM CHLORIDE FLUSH 10ML SYR IVF SCH ×2 (08:15→21:53)
[2019-05-08 12:03] VITALS: BP 132/82
[2019-05-08] MEDS ORDERED: HEPARIN 25,000 UNITS/500ML PMX 500 ML ONE (15:57)
[2019-05-08] MEDS: ENOXAPARIN 40 MG/0.4 ML SQ SCH (17:14)
[2019-05-08] MEDS: INSULIN GLARGINE 100 UNITS/ML, PEN SQ-INSULIN SCH (17:15)
[2019-05-08 19:30] VITALS: BP 103/68
[2019-05-08] MEDS ORDERED: ALUMINUM/MAG/SIMETHICONE 30 ML UDC PO ONE (20:00)
[2019-05-08 21:50] VITALS: BP 115/64
[2019-05-08] MEDS: SIMVASTATIN 20 MG TABLET PO SCH (21:52)
[2019-05-08 23:25] LABS: MICROSCOPIC NOT IND
[2019-05-08 23:28] LABS: CULTURE INDICATED? NO
[2019-05-09 00:22] VITALS: BP 113/68
[2019-05-09] MEDS: DILTIAZEM 30 MG TABLET PO SCH ×5 (00:24→23:49)
[2019-05-09 05:25] LABS: ANION GAP 7 mmol/L (5-15); CHLORIDE 98 mmol/L (98-107); CREATININE 0.82 mg/dL (0.7-1.3); MEAN CORPUSCULAR HEMOGLOBIN 34.7 pg (27.5-34.5); MEAN CORPUSCULAR HGB CONC 32.6 g/dL (33.2-36.2); MEAN CORPUSCULAR VOLUME 106.4 fL (81-97); MEAN PLATELET VOLUME 9.2 fL (7.4-10.4); PLATELET COUNT 195 x10^3/uL (130-400); RED BLOOD COUNT 4.05 x10^6/uL (4.38-5.82); RED CELL DISTRIBUTION WIDTH 14.2 % (9.4-14.8)
[2019-05-09] MEDS: FUROSEMIDE 40 MG/4 ML IV SCH (05:43)
[2019-05-09] MEDS: INSULIN GLARGINE 100 UNITS/ML, PEN SQ-INSULIN SCH ×2 (05:44→17:24)
[2019-05-09 06:16] LABS: BASOPHILS # (AUTO) 0.03 x10^3/uL (0-0.1); BASOPHILS % (AUTO) 0 % (0-1); EOSINOPHILS # (AUTO) 0.02 x10^3/uL (0-0.4); EOSINOPHILS % (AUTO) 0 % (1-7); LYMPHOCYTES # (AUTO) 22.04 x10^3/uL (1-3.4); LYMPHOCYTES % (AUTO) 59 % (22-44); MD SCAN; MONOCYTES # (AUTO) 0.18 x10^3/uL (0.2-0.8); MONOCYTES % (AUTO) 1 % (2-9); NEUTROPHILS # (AUTO) 15.36 x10^3/uL (1.8-6.8); NEUTROPHILS % (AUTO) 41 % (42-75)
[2019-05-09] MEDS: ALBUTEROL/IPRATROPIUM 2.5MG/0.5MG, 3 ML NPPB SCH ×3 (07:00→20:19)
[2019-05-09] MEDS: FUROSEMIDE 80 MG TABLET PO SCH ×2 (07:38→17:20)
[2019-05-09] MEDS: ASPIRIN 81 MG TABLET EC PO SCH (07:38)
[2019-05-09] MEDS: CLOPIDOGREL 75 MG TABLET PO SCH (07:38)
[2019-05-09] MEDS: FAMOTIDINE 20 MG TABLET PO SCH ×2 (07:38→21:10)
[2019-05-09] MEDS: SPIRONOLACTONE 25 MG TABLET PO SCH (07:38)
[2019-05-09] MEDS: CALCIUM CARBONATE 500 MG TAB.CHEW PO SCH (07:38)
[2019-05-09] MEDS: methylPREDNISolone SOD SUCC 40 MG/ML IV SCH (07:39)
[2019-05-09] MEDS: INSULIN LISPRO 100 UNITS/ML, PEN SQ-INSULIN SCH ×4 (07:40→21:18)
[2019-05-09] MEDS: SODIUM CHLORIDE FLUSH 10ML SYR IVF SCH ×2 (07:46→21:10)
[2019-05-09 08:43] VITALS: BP 123/64
[2019-05-09 14:22] VITALS: BP 112/61
[2019-05-09] MEDS: ENOXAPARIN 40 MG/0.4 ML SQ SCH (17:19)
[2019-05-09] MEDS: DILTIAZEM 5 MG/ML, 5ML IVPush PRN (18:32)
[2019-05-09 19:59] VITALS: BP 121/76
[2019-05-09] MEDS: SIMVASTATIN 20 MG TABLET PO SCH (21:10)
[2019-05-10] MEDS: ALBUTEROL/IPRATROPIUM 2.5MG/0.5MG, 3 ML NPPB SCH ×4 (02:52→20:41)
[2019-05-10 03:22] VITALS: BP 110/76
[2019-05-10] MEDS: DILTIAZEM 30 MG TABLET PO SCH ×4 (06:15→23:32)
[2019-05-10] MEDS: INSULIN GLARGINE 100 UNITS/ML, PEN SQ-INSULIN SCH ×2 (06:29→17:25)
[2019-05-10 06:57] VITALS: BP 120/83
[2019-05-10] MEDS: INSULIN LISPRO 100 UNITS/ML, PEN SQ-INSULIN SCH ×4 (07:21→20:39)
[2019-05-10] MEDS: SODIUM CHLORIDE FLUSH 10ML SYR IVF SCH ×2 (07:22→20:39)
[2019-05-10] MEDS: FAMOTIDINE 20 MG TABLET PO SCH ×2 (07:24→20:38)
[2019-05-10] MEDS: ASPIRIN 81 MG TABLET EC PO SCH (07:24)
[2019-05-10] MEDS: SPIRONOLACTONE 25 MG TABLET PO SCH (07:24)
[2019-05-10] MEDS: FUROSEMIDE 80 MG TABLET PO SCH ×2 (07:24→17:08)
[2019-05-10] MEDS: CALCIUM CARBONATE 500 MG TAB.CHEW PO SCH (07:25)
[2019-05-10] MEDS: CLOPIDOGREL 75 MG TABLET PO SCH (07:25)
[2019-05-10 08:55] LABS: MEAN CORPUSCULAR HEMOGLOBIN 34.4 pg (27.5-34.5); MEAN CORPUSCULAR HGB CONC 32.2 g/dL (33.2-36.2); MEAN CORPUSCULAR VOLUME 106.8 fL (81-97); MEAN PLATELET VOLUME 9.1 fL (7.4-10.4); PLATELET COUNT 208 x10^3/uL (130-400); RED BLOOD COUNT 4.46 x10^6/uL (4.38-5.82); RED CELL DISTRIBUTION WIDTH 14.3 % (9.4-14.8)
[2019-05-10 09:05] LABS: ANION GAP 7 mmol/L (5-15); CALCIUM 7.2 mg/dL (8.5-10.1); CHLORIDE 92 mmol/L (98-107); CREATININE 1.03 mg/dL (0.7-1.3); MD YES
[2019-05-10 09:19] LABS: BAND#(MANUAL) 0.48 x10^3/uL; BANDS%(MANUAL) 1 % (0-7); METAMYELOCYTES# (MANUAL) 0.48 x10^3/uL (0-0); METAMYELOCYTES% (MANUAL) 1 % (0-1)
[2019-05-10 09:21] LABS: <PLATELET ESTIMATE> ADEQUATE; <PLT MORPHOLOGY> NORMAL PLT MORPH; LYMPH#(MANUAL) 30.53 x10^3/uL (1-3.4); LYMPHS% (MANUAL) 64 % (22-44); MONOS#(MANUAL) 0.48 x10^3/uL (0.3-2.7); MONOS% (MANUAL) 1 % (2-9); SEG#(MANUAL) 15.74 x10^3/uL (1.8-6.8); SEGS% (MANUAL) 33 % (42-75)
[2019-05-10 09:23] LABS: SMUDGE CELLS 1+
[2019-05-10 12:15] VITALS: BP 127/77
[2019-05-10] MEDS: DILTIAZEM 5 MG/ML, 5ML IVPush PRN ×2 (13:17→18:55)
[2019-05-10] MEDS: ENOXAPARIN 40 MG/0.4 ML SQ SCH (17:08)
[2019-05-10] MEDS ORDERED: FUROSEMIDE 100 MG/10 ML IV ONE (19:30)
[2019-05-10 20:24] VITALS: BP 115/82
[2019-05-10] MEDS: SIMVASTATIN 20 MG TABLET PO SCH ×2 (20:39→20:45)
[2019-05-11 01:20] VITALS: BP 130/76
[2019-05-11] MEDS: ALBUTEROL/IPRATROPIUM 2.5MG/0.5MG, 3 ML NPPB SCH ×2 (03:15→06:55)
[2019-05-11] MEDS: LORazepam 0.5MG TABLET PO PRN ×2 (04:16→08:33)
[2019-05-11 05:36] LABS: MEAN CORPUSCULAR HEMOGLOBIN 34.5 pg (27.5-34.5); MEAN CORPUSCULAR HGB CONC 32.5 g/dL (33.2-36.2); MEAN CORPUSCULAR VOLUME 106.2 fL (81-97); MEAN PLATELET VOLUME 9.9 fL (7.4-10.4); PLATELET COUNT 183 x10^3/uL (130-400); RED BLOOD COUNT 4.49 x10^6/uL (4.38-5.82)
[2019-05-11] MEDS: DILTIAZEM 30 MG TABLET PO SCH (05:44)
[2019-05-11 05:51] LABS: MD YES
[2019-05-11 05:59] LABS: LYMPH#(MANUAL) 32.98 x10^3/uL (1-3.4); LYMPHS% (MANUAL) 68 % (22-44); SEG#(MANUAL) 15.52 x10^3/uL (1.8-6.8); SEGS% (MANUAL) 32 % (42-75)
[2019-05-11 06:00] LABS: <PLATELET ESTIMATE> ADEQUATE; <PLT MORPHOLOGY> NORMAL PLT MORPH; SMUDGE CELLS 1+
[2019-05-11 06:02] LABS: CHLORIDE 91 mmol/L (98-107)
[2019-05-11 06:11] LABS: ANION GAP 10 mmol/L (5-15); CALCIUM 8.1 mg/dL (8.5-10.1); CREATININE 0.84 mg/dL (0.7-1.3)
[2019-05-11] MEDS: INSULIN GLARGINE 100 UNITS/ML, PEN SQ-INSULIN SCH (06:21)
[2019-05-11 08:23] VITALS: BP 127/88
[2019-05-11] MEDS: ASPIRIN 81 MG TABLET EC PO SCH (08:32)
[2019-05-11] MEDS: INSULIN LISPRO 100 UNITS/ML, PEN SQ-INSULIN SCH (08:32)
[2019-05-11] MEDS: CLOPIDOGREL 75 MG TABLET PO SCH (08:32)
[2019-05-11] MEDS: CALCIUM CARBONATE 500 MG TAB.CHEW PO SCH (08:33)
[2019-05-11] MEDS: FAMOTIDINE 20 MG TABLET PO SCH (08:33)
[2019-05-11] MEDS ORDERED: DILTIAZEM 120 MG CAP.ER.24H PO SCH (09:00)
[2019-05-11] MEDS ORDERED: SPIRONOLACTONE 25 MG TABLET PO SCH (09:00)
[2019-05-11] MEDS: SODIUM CHLORIDE FLUSH 10ML SYR IVF SCH (09:57)
[2019-05-11] MEDS ORDERED: OXYcodone/APAP 5/325MG TABLET ONE (13:03)
[2019-05-11] MEDS ORDERED: LORazepam 1MG TABLET PO ONE (14:00)
[2019-05-11] MEDS ORDERED: MORPHINE SULFATE 4 MG/ML, 1ML IVPush PRN ×3 (14:00)
[2019-05-11] MEDS ORDERED: SCOPOLAMINE PATCH, 1.5MG PATCH.TD72 TD PRN (14:00)
[2019-05-11] MEDS ORDERED: SODIUM CHLORIDE 0.9% 1,000 ML IV SCH (14:00)
[2019-05-11] MEDS ORDERED: LORazepam 2 MG/ML, 1ML IVPush PRN (14:00)
[2019-05-11] MEDS ORDERED: ONDANSETRON 2MG/ML, 2ML IVPush PRN (14:00)
[2019-05-11] MEDS ORDERED: OXYcodone/APAP 5/325MG TABLET PO ONE (14:00)
[2019-05-11] MEDS ORDERED: ATROPINE OPHTH SOLN 1%, 5ML BC PRN (14:00)
[2019-05-11] MEDS ORDERED: FUROSEMIDE 80 MG TABLET PO SCH (17:00)
== END 2019-05-11 14:40 | disposition hospice, home (50) | DRG 314 ==
LOC: ED 14:32 → EDIP 15:19 → 5SO 16:51 → 4NW 05-11 13:57 → UNDODISIN 05-11 14:38
PROVIDERS: ADMIT Internal Medicine; ATTEND Internal Medicine
DX: I27.29 Other secondary pulmonary hypertension (principal); J81.0 Acute pulmonary edema; J96.21 Acute and chronic respiratory failure with hypoxia; C91.10 Chronic lymphocytic leukemia of B-cell type not having achieved remission; E46 Unspecified protein-calorie malnutrition; I47.1 Supraventricular tachycardia; E22.2 Syndrome of inappropriate secretion of antidiuretic hormone; J84.10 Pulmonary fibrosis, unspecified; D64.9 Anemia, unspecified; D75.89 Other specified diseases of blood and blood-forming organs; E11.65 Type 2 diabetes mellitus with hyperglycemia; E78.5 Hyperlipidemia, unspecified; G89.29 Other chronic pain; I10 Essential (primary) hypertension; I25.10 Atherosclerotic heart disease of native coronary artery without angina pectoris; I27.81 Cor pulmonale (chronic); I48.91 Unspecified atrial fibrillation; J44.9 Chronic obstructive pulmonary disease, unspecified; M47.812 Spondylosis without myelopathy or radiculopathy, cervical region; L89.90 Pressure ulcer of unspecified site, unspecified stage; M19.90 Unspecified osteoarthritis, unspecified site; Z66 Do not resuscitate; I25.2 Old myocardial infarction; Z79.4 Long term (current) use of insulin; Z79.52 Long term (current) use of systemic steroids; Z79.899 Other long term (current) drug therapy; Z85.46 Personal history of malignant neoplasm of prostate; Z86.73 Personal history of transient ischemic attack (TIA), and cerebral infarction without residual deficits; Z87.442 Personal history of urinary calculi; Z87.891 Personal history of nicotine dependence; Z95.5 Presence of coronary angioplasty implant and graft; Z79.82 Long term (current) use of aspirin; Z68.26 Body mass index [BMI] 26.0-26.9, adult; E87.79 Other fluid overload
CPT/HCPCS: 36415; 71045; 71275; 80048; 80053; 81003; 82947; 82962; 83036; 83735; 83880; 84443; 84484; 85025; 85610; 93005; 93308; 93321; 93325; 94640; 99285; G0378; J1650; J1940; J7620; Q9967; J1815; J2920; J3475; J7030; J7512